=== PATIENT | male | born 1955 | race Caucasian/White ===

== ENCOUNTER 2024-06-08 10:25 | Outpatient (CLI) | payer OTHER, SELFPAY | END 2024-06-08 10:26 | disposition home or self-care (01) | PROVIDERS: PCP Internal Medicine | DX: A31.0 Pulmonary mycobacterial infection (principal) | CPT/HCPCS: 92557; 92567 ==

== ENCOUNTER 2024-08-02 10:30 | Outpatient (RCR) | payer OTHER, SELFPAY | END 2024-10-04 23:59 | disposition home or self-care (01) | LOC: ANHBWCAUD 10:30 | PROVIDERS: PCP Internal Medicine | DX: A31.0 Pulmonary mycobacterial infection (principal) | CPT/HCPCS: 92557; 92567 ==